=== PATIENT | female | born 1990 | race Caucasian/White ===

== ENCOUNTER 2018-08-27 22:18 | Emergency (ER) | payer MEDICAID, SELFPAY ==
[2018-08-27 22:23] VITALS: BP 121/72; PULSE 117; RESP 17; TEMP 37; O2SAT 100
[2018-08-27 22:44] VITALS: RESP 17
[2018-08-27] MEDS: LORazepam 0.5 MG TAB PO (23:10)
[2018-08-27 23:17] VITALS: BP 109/68; PULSE 99; RESP 16; O2SAT 97
--- NOTE | 2018-08-27 23:17 | W.ED.GENAD ---
Discharge Plan Disposition Patient Disposition: HOME Condition: Improving Discharge Details Chief Complaint: Anxiety Clinical Impression: Anxiety attack Primary Care Provider: None,None ED Provider: Liz Corona Home Meds and New Rx's Prescriptions: No Action No Known Home Meds RF: 0 Discharge Instructions Instructions: Anxiety (ED), Anxiolysis in Adults (ED) Additional Instructions: Encourage hydration. Try breathing techniques as discussed for anxiety. Please call primary care Thursday to schedule follow up appointment. If you develop new/worsening symptom s please seek care urgently once again. Stand Alone Forms: Work Release Referrals: Carrington Colon NP [NURSE PRACTITIONER] - Discharge Data Discharge Date/Time-TO BE ENTERED AT DEPARTURE: 08/27/18 23:38 Medical Decision Making Patient is a 28 year old female presenting today with c/c of anxiety. she reports she has had anxiety attacks historically, has been one year since her last. About to start a new job, increasing her stress. She Denies fever/chills, CHRISTY, visual changes, weakness, altered sensation. States that she laid down for bed tonight when this came on. States that it feels like her anxiety does typically. Feels that she is already improving. Patient does appear anxious on exam. She is tachycardic with a rate of 117. Patient is not on any estrogen supplements. Do not have suspicion for pulmonary embolism. Also considered ACS but finds highly unlikely. Patient is denying any chest pain. Is rather, feeling shaky, anxious and short of breath. States that she has been under increased stress since changing her job. Reports this feels very similar to her anxiety sections have the past. Will treat as such. She denies any thoughts of self-harm Patient received oral Ativan, is feeling much improved. Patient does not have local primary care, I have asked her lawn care professional to follow-up appointment. She denies discussed return precautions in depth. All of her questions and concerns were addressed and she is in agreement this plan. We did discuss home anxiolytic techniques which patient will begin using. She lives with her significant other who is able to continue to monitor her and bring her back should symptoms progress. HPI General Mode of arrival: ambulatory. Date/Time Provider Initiated Documentation: 08/27/18 22:24. Limitations to Documentation: no limitations. Information obtained by: patient, family and RN notes reviewed. History of Present Illness 28 year old F presents to the emergency department with the chief complaint of anxiety attack, described as severe and similar to prior episodes, Quality is described as other (feels shaky in extremities), Patient started experiencing this minute(s) and it has been constant. No relieving factors improve symptom(s), No exacerbating factors reported . Patient notes shortness of breath (has been hyperventilating); denies chest pain, cough, diaphoresis, fever/chills, headaches, loss of appetite, nausea/vomiting, rash, syncope and weakness. Patient did receive the following treatments prior to arrival, none Related Data Home Medications Medication Instructions Recorded Confirmed Unknown [No Known Home Meds] 08/27/18 08/27/18 Allergies Allergy/AdvReac Type Severity Reaction Status Date / Time tetracycline Allergy Severe Hives Unverified 08/27/18 22:27 General Stated Complaint: Anxiety ISIDRO: 3 Review of Systems Constitutional Reports as per HPI, Denies chills, Denies fatigue, Denies fever(s), Denies headache(s) and Denies weakness Eyes Denies change in vision ENT Denies headache(s) Cardiovascular Reports as per HPI, Denies chest pain, Denies lightheadedness, Denies dyspnea and Denies dyspnea on exertion Respiratory Reports as per HPI, Denies cough, Denies dyspnea and Denies dyspnea on exertion Gastrointestinal Reports as per HPI, Denies abdominal pain, Denies change in bowel habits, Denies nausea and Denies vomiting Musculoskeletal Denies abnormal gait Integumentary/Breasts Reports as per HPI and Denies rash Neurologic Denies abnormal movements, Denies abnormal speech, Denies abnormal gait, Denies headache(s), Denies paresthesias and Denies weakness Psychiatric Reports abnormal sleep pattern (difficulty sleeping recently), Reports anxiety, Denies depression, Denies hallucinations, Denies homicidal ideation and Denies suicidal ideation Endocrine Denies fatigue [facility] Social History Smoking/Tobacco Use Status: Current every day Tobacco Type: cigarettes Alcohol Intake: current Alcohol Intake frequency: a few times a month Drug use: Daily Substance use type: marijuana Do you feel safe at home: Yes Do you feel safe in your relationship?: Yes Exam Const General: cooperative, healthy appearing, comfortable, no acute distress, well developed, well groomed and anxious Nutritional Appearance: average body habitus and well nourished Orientation: alert and awake [facility] Head: normal to inspection, no palpable skull fracture and normocephalic Ears: hearing grossly normal bilaterally Mouth: oral mucosae normal Eyes General: appearance normal, both eyes and all related structures Resp Effort & Inspection: normal respiratory effort, able to speak in complete sentences and no respiratory distress Auscultation: clear to auscultation bilaterally, no rales, no rhonchi and no wheezes Cardio Rate: regular rate Rhythm: regular rhythm Heart Sounds: S1 normal and S2 normal GI Inspection: normal to inspection Palpation: soft and nontender Back/Spine/Pelvis Back: no CVA tenderness Skin General skin exam: no rashes or lesions noted Trauma: no lacerations or abrasions Neuro General: alert and awake Cognition: normal cognition Speech: speech normal Gait: normal gait Course Vital Signs Temperature 37.0 C 08/27/18 22:23 Pulse 117 H 08/27/18 22:23 Respiratory Rate 17 08/27/18 22:23 Blood Pressure 121/72 08/27/18 22:23 Pulse Oximetry 100 08/27/18 22:23 Temperature 37.0 C 08/27/18 22:23 Temperature Source Skin 08/27/18 22:23 Pulse 117 H 08/27/18 22:23 Respiratory Rate 17 08/27/18 22:44 Respiratory Effort Non-Labored 08/27/18 22:44 Respiratory Depth Normal 08/27/18 22:44 Respiratory Pattern Normal 08/27/18 22:44 Blood Pressure 121/72 08/27/18 22:23 Blood Pressure Position Sitting 08/27/18 22:23 Pulse Oximetry 100 08/27/18 22:23 Oxygen Delivery Method Room Air 08/27/18 22:23 Oxygen Flow Rate 0 08/27/18 22:23 Pain Level 0 08/27/18 22:23
[2018-08-27 23:37] VITALS: BP 117/72; PULSE 93; RESP 16; TEMP 37; O2SAT 99
--- NOTE | 2018-08-27 23:56 | ED.GENADUL_ITS ---
Discharge Plan Disposition Patient Disposition: HOME Condition: Improving Discharge Details Chief Complaint: Anxiety Clinical Impression: Anxiety attack Primary Care Provider: None,None ED Provider: Liz Corona Home Meds and New Rx's Prescriptions: No Action No Known Home Meds RF: 0 Discharge Instructions Instructions: Anxiety (ED), Anxiolysis in Adults (ED) Additional Instructions: Encourage hydration. Try breathing techniques as discussed for anxiety. Please call primary care Thursday to schedule follow up appointment. If you develop new/worsening symptom s please seek care urgently once again. Stand Alone Forms: Work Release Referrals: Carrington Colon NP [NURSE PRACTITIONER] - Discharge Data Discharge Date/Time-TO BE ENTERED AT DEPARTURE: 08/27/18 23:38 Medical Decision Making Patient is a 28 year old female presenting today with c/c of anxiety. she reports she has had anxiety attacks historically, has been one year since her last. About to start a new job, increasing her stress. She Denies fever/chills, CHRISTY, visual changes, weakness, altered sensation. States that she laid down for bed tonight when this came on. States that it feels like her anxiety does typically. Feels that she is already improving. Patient does appear anxious on exam. She is tachycardic with a rate of 117. Patient is not on any estrogen supplements. Do not have suspicion for pulmonary embolism. Also considered ACS but finds highly unlikely. Patient is denying any chest pain. Is rather, feeling shaky, anxious and short of breath. States that she has been under increased stress since changing her job. Reports this feels very similar to her anxiety sections have the past. Will treat as such. She denies any thoughts of self-harm Patient received oral Ativan, is feeling much improved. Patient does not have local primary care, I have asked her customer care representative to follow-up appointment. She denies discussed return precautions in depth. All of her questions and concerns were addressed and she is in agreement this plan. We did discuss home anxiolytic techniques which patient will begin using. She lives with her significant other who is able to continue to monitor her and bring her back should symptoms progress. HPI General Mode of arrival: ambulatory . Date/Time Provider Initiated Documentation: 08/27/18 22:24 . Limitations to Documentation: no limitations . Information obtained by: patient, family and RN notes reviewed . History of Present Illness 28 year old F presents to the emergency department with the chief complaint of anxiety attack, described as severe and similar to prior episodes, Quality is described as other (feels shaky in extremities), Patient started experiencing this minute(s) and it has been constant. No relieving factors improve symptom(s), No exacerbating factors reported . Patient notes shortness of breath (has been hyperventilating); denies chest pain, cough, diaphoresis, fever/chills, headaches, loss of appetite, nausea/vomiting, rash, syncope and weakness. Patient did receive the following treatments prior to arrival, none Related Data Home Medications Medication Instructions Recorded Confirmed Unknown [No Known Home Meds] 08/27/18 08/27/18 Allergies Allergy/AdvReac Type Severity Reaction Status Date / Time tetracycline Allergy Severe Hives Unverified 08/27/18 22:27 General Stated Complaint: Anxiety ISIDRO: 3 Review of Systems Constitutional Reports as per HPI, Denies chills, Denies fatigue, Denies fever(s), Denies headache(s) and Denies weakness Eyes Denies change in vision ENT Denies headache(s) Cardiovascular Reports as per HPI, Denies chest pain, Denies lightheadedness, Denies dyspnea and Denies dyspnea on exertion Respiratory Reports as per HPI, Denies cough, Denies dyspnea and Denies dyspnea on exertion Gastrointestinal Reports as per HPI, Denies abdominal pain, Denies change in bowel habits, Denies nausea and Denies vomiting Musculoskeletal Denies abnormal gait Integumentary/Breasts Reports as per HPI and Denies rash Neurologic Denies abnormal movements, Denies abnormal speech, Denies abnormal gait, Denies headache(s), Denies paresthesias and Denies weakness Psychiatric Reports abnormal sleep pattern (difficulty sleeping recently), Reports anxiety, Denies depression, Denies hallucinations, Denies homicidal ideation and Denies suicidal ideation Endocrine Denies fatigue [facility] Social History Smoking/Tobacco Use Status: Current every day Tobacco Type: cigarettes Alcohol Intake: current Alcohol Intake frequency: a few times a month Drug use: Daily Substance use type: marijuana Do you feel safe at home: Yes Do you feel safe in your relationship?: Yes Exam Const General: cooperative, healthy appearing, comfortable, no acute distress, well developed, well groomed and anxious Nutritional Appearance: average body habitus and well nourished Orientation: alert and awake [facility] Head: normal to inspection, no palpable skull fracture and normocephalic Ears: hearing grossly normal bilaterally Mouth: oral mucosae normal Eyes General: appearance normal, both eyes and all related structures Resp Effort & Inspection: normal respiratory effort, able to speak in complete sentences and no respiratory distress Auscultation: clear to auscultation bilaterally, no rales, no rhonchi and no wheezes Cardio Rate: regular rate Rhythm: regular rhythm Heart Sounds: S1 normal and S2 normal GI Inspection: normal to inspection Palpation: soft and nontender Back/Spine/Pelvis Back: no CVA tenderness Skin General skin exam: no rashes or lesions noted Trauma: no lacerations or abrasions Neuro General: alert and awake Cognition: normal cognition Speech: speech normal Gait: normal gait Course Vital Signs Temperature 37.0 C 08/27/18 22:23 Pulse 117 H 08/27/18 22:23 Respiratory Rate 17 08/27/18 22:23 Blood Pressure 121/72 08/27/18 22:23 Pulse Oximetry 100 08/27/18 22:23 Temperature 37.0 C 08/27/18 22:23 Temperature Source Skin 08/27/18 22:23 Pulse 117 H 08/27/18 22:23 Respiratory Rate 17 08/27/18 22:44 Respiratory Effort Non-Labored 08/27/18 22:44 Respiratory Depth Normal 08/27/18 22:44 Respiratory Pattern Normal 08/27/18 22:44 Blood Pressure 121/72 08/27/18 22:23 Blood Pressure Position Sitting 08/27/18 22:23 Pulse Oximetry 100 08/27/18 22:23 Oxygen Delivery Method Room Air 08/27/18 22:23 Oxygen Flow Rate 0 08/27/18 22:23 Pain Level 0 08/27/18 22:23
--- NOTE | 2018-08-31 08:56 | PDOC.ERCMPRO ---
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 Referral faxed to [facility] this am.
--- NOTE | 2018-08-31 08:57 | CMPROGNOTE_ITS ---
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 Referral faxed to [facility] this am.
== END 2018-08-27 23:38 | disposition home or self-care (01) ==
LOC: ER 23:49
PROVIDERS: Emergency Provider Physician Assistant
DX: F41.9 Anxiety disorder, unspecified (principal)
CPT/HCPCS: 99283

== ENCOUNTER 2018-10-13 12:08 | Outpatient (REF) | payer MEDICAID, SELFPAY ==
--- NOTE | 2018-10-13 11:25 | PAPFT_PTH ---
PATIENT: MICHELLE CHIU LOC: [facility] U#:[id number] AGE/SX: 28/F ROOM: RE10/13/[address]: Bernie Whitman NP : 1990 BED: DIS: 10/13/2018 SPEC #: [id number] RECD: 10/13/18 13:01 STATUS: KRISTOPHER JEFFERSON #: [id number] TANESHA: 10/13/18 11:[address]: Bernie Whitman NP DEPT: [facility] Cytology RECD BY: Carmel Fairbanks ENTERED: 10/13/18 13:01 SP TYPE: PAPFT SEVERIANO DR: None Tissues: 1 - CX/ENDOCX FOR PAP SMEARS Procedures: PAP THIN PREP/UVM Screening HPV DNA PROBE Comments: [id number] (CHLAMYDIA/GC)
[2018-10-14 14:32] LABS: Chlamydia Result Negative; GC Result Negative; Specimen Description SEE COMMENTS
== END 2018-10-13 12:28 ==
LOC: LBN 12:08
PROVIDERS: Visit Provider Nurse Practitioner Women's Health
DX: Z11.4 Encounter for screening for human immunodeficiency virus [HIV] (principal); Z11.51 Encounter for screening for human papillomavirus (HPV); Z11.3 Encounter for screening for infections with a predominantly sexual mode of transmission
CPT/HCPCS: 87491; 87591; 88142; 87624

== ENCOUNTER 2018-12-31 02:38 | Emergency (ER) | payer MEDICAID, SELFPAY ==
[2018-12-31 02:41] VITALS: BP 109/66; PULSE 88; RESP 24; TEMP 37.5; O2SAT 99
--- NOTE | 2018-12-31 02:45 | ED.GENADUL_ITS ---
Discharge Plan Disposition Patient Disposition: HOME Condition: Good Discharge Details Chief Complaint: Abd Prob Clinical Impression: Upper abdominal pain Primary Care Provider: Kitty Briscoe ED Provider: Claude Self Meds and New Rx's Prescriptions: New omeprazole 40 mg capsule,delayed release(DR/EC) 40 mg PO DAILY Qty: 30 RF: 0 sucralfate 1 gram tablet 1 gm PO QACHS Qty: 40 RF: 0 Continued lorazepam [Ativan] 0.5 mg Tablet 0.5 mg PO DIRECTED RF: 0 Discharge Instructions Instructions: Abdominal Pain (ED) Additional Instructions: Your laboratory studies tonight looked okay. Suspect pain is related to acid type disease in the stomach, possibly ulcer. We will start you on medication as we discussed. Try to cut back on caffeine and tobacco use. Follow-up with primary care. Return to ED for fever, worsening pain, vomiting especially blood, black or bloody stool. Referrals: Kitty Briscoe [Primary Care Provider] - Medical Decision Making Patient presenting with periumbilical upper abdominal pain that has been triggered by eating and bothering her on and off for the last week. Tonight it is worse and not resolving. She has normal vital signs. She has no right upper quadrant tenderness. She has mild left upper quadrant tenderness. She does not have a surgical abdomen. She reports some dark stool this morning. Suspicious for acid related stomach disease. Will place IV and check labs. Will give IV Pepcid, GI cocktail, oral Carafate. Patient does report feeling better after medications though still has some discomfort. Abdomen remains benign. Laboratory studies are unremarkable. There is no anemia. Liver function lipase are normal. White count is normal. Discussed cutting back on caffeine and tobacco use. She also reports a fair amount of stress with her grandmother dying and her mother having a heart attack. We will start her on a PPI and Carafate. Follow-up with primary care. Return to ED if worsening pain, vomiting, hematemesis, fever, other concerns or problems. Lab Data Lab results reviewed: Yes I reviewed the patient's lab results. HPI General Mode of arrival: ambulatory . Date/Time Provider Initiated Documentation: 12/31/18 02:43 . Limitations to Documentation: no limitations . Information obtained by: patient and RN notes reviewed . HPI Narrative: Patient presents to ED with abdominal pain. She has been having abdominal discomfort on and off for the past week. Eating seems to bring it on most often. Simethicone usually relieves it. Tonight she has had worsening pain. Simethicone, omeprazole, ibuprofen has not helped. She has had occasional nausea but no vomiting. She did notice dark stool this morning. Pain is periumbilical and upper. It is sharp in nature. She is a smoker and drinks a lot of caffeine but denies significant alcohol or nonsteroidal use. She has no back pain, chest pain. She has few urinary symptoms but it is unchanged and related to her interstitial cystitis. She is due for her menstrual period is due now. She is not having pelvic pain or cramping and feels that this is more abdominal in nature. Related Data Home Medications Medication Instructions Recorded Confirmed lorazepam [Ativan] 0.5 mg PO DIRECTED 12/31/18 12/31/18 omeprazole 40 mg PO DAILY #30 cap 12/31/18 sucralfate 1 gm PO QACHS #40 tab 12/31/18 Previous Rx's Medication Instructions Recorded omeprazole 40 mg PO DAILY #30 cap 12/31/18 sucralfate 1 gm PO QACHS #40 tab 12/31/18 Allergies Allergy/AdvReac Type Severity Reaction Status Date / Time tetracycline Allergy Severe Hives Unverified 12/31/18 02:45 General Stated Complaint: Abd Prob ISIDRO: 3 Review of Systems Review of Systems Narrative: As documented in HPI otherwise negative as below. Const: no fever, chills, weakness Resp: no cough, SOB, pleuritic pain CV: no CP, diaphoresis, edema, syncope GI: abdominal pain, nausea; occasional diarrhea; no vomiting Neuro: no headache, numbness, focal weakness, confusion PFSH Medical History Acne (Acute) Anxiety (Chronic) History of abnormal cervical Pap smear (Acute) Interstitial cystitis (Acute) Panic attack (Acute) Smoker (Acute) Surgical History H/O cystoscopy (Acute) H/O eye surgery (Acute) s/p dog bite as toddler Social History Smoking/Tobacco Use Status: Current every day Tobacco Type: cigarettes Alcohol Intake: current Alcohol Intake frequency: holidays/special occasions only Drug use: Occasionally Substance use type: marijuana Do you feel safe at home: Yes Do you feel safe in your relationship?: Yes Female Reproductive History Menstrual Age of Menarche: 14 control method: none History History 1 Para 0 Hx # Term Pregnancies Multiple births Hx # Pregnancies Ectopic pregnancies AB induced Hx Number of Living Children AB spontaneous Exam Narrative Exam Narrative: Vitals: Afebrile with normal vitals and saturations. Const: WDWN female in NAD. HEENT: NC/AT. Normal facial exam. Eyes: Normal conjunctiva and sclera. Neck: Supple. Trachea midline. Lungs: Normal respiratory effort. Lungs are clear. Cor: RRR without murmur/gallop. Good radial pulses. GI: Soft and non-distended. Mildly tender in the LUQ but no guarding or rebound. Neuro: A+O x 3. CN grossly in tact. Good strength and no focal deficit. Ext: No C/C/E. Skin: Warm and dry without rash. Course Vital Signs Vital signs: Vital Signs Temperature 99.5 F 12/31/18 02:41 Pulse 88 12/31/18 02:41 Respiratory Rate 24 12/31/18 02:41 Blood Pressure 109/66 12/31/18 02:41 Pulse Oximetry 99 12/31/18 02:41 Temperature 99.5 F 12/31/18 02:41 Temperature Source Skin 12/31/18 02:41 Pulse 88 12/31/18 02:41 Respiratory Rate 24 12/31/18 02:41 Blood Pressure 109/66 12/31/18 02:41 Blood Pressure Position Sitting 12/31/18 02:41 Pulse Oximetry 99 12/31/18 02:41 Oxygen Delivery Method Room Air 12/31/18 02:41 Oxygen Flow Rate 0 12/31/18 02:41 Pain Level 9 12/31/18 02:41
[2018-12-31] MEDS: Sucralfate 1 GM TAB PO (03:03)
[2018-12-31] MEDS: FAMOTIDINE 20 MG/50 ML BAG 100 MG IVPB (03:09)
[2018-12-31 03:27] LABS: Abs Immature Grans 0.03 k/cumm (0.0-0.09); Absolute Basophil Count 0.04 k/cumm (0.0-0.2); Absolute Eosinophil Count 0.17 k/cumm (0.0-0.7); Absolute Lymphocyte Count 1.72 k/cumm (1.2-3.4); Absolute Monocyte Count 0.92 k/cumm (0.11-0.7); Absolute Neutrophil Count 6.81 k/cumm (1.2-6.7); Basophils % 0.4; Eosinophils % 1.8; HCT 38.9 % (36.0-46.0); HGB 13.3 g/dL (12.0-15.5); Immature Grans % 0.3; Lymphocytes % 17.8; Mean Corp. HGB Concentration 34.2 g/dL (32.0-36.0); Mean Corpuscular Volume 99.5 fL (80-95); Mean Platelet Volume 10.1 fL (8.0-11.0); Monocytes % 9.5; Neutrophils % 70.2; Platelet Count 253 x1000/uL (130-400); RBC 3.91 m/cumm (4.00-5.20); RBC Distribution Width 11.2 % (11.7-14.6); White Blood Cell Count 9.69 k/cumm (4.4-10.8)
[2018-12-31 03:34] LABS: HCG Qual (Serum) Negative
[2018-12-31 03:40] LABS: ALT 13 U/L (14-59); AST 12 U/L (15-37); Albumin 4.1 g/dL (3.4-5.0); Alkaline Phosphatase 56 U/L (46-116); Anion Gap 11.9 mmol/L (3-11); BUN 14 mg/dL (7-18); Bilirubin, Total 0.4 mg/dL (0.2-1.0); CO2 23.1 mmol/L (21.0-32.0); CREATININE 0.84 mg/dL (0.55-1.02); Calcium 8.4 mg/dL (8.5-10.1); Chloride 106 mmol/L (98-107); Glucose 98 mg/dL (70-100); Lipase 100 U/L (73-393); Sodium 141 mmol/L (136-145); Total Protein 7.6 g/dL (6.4-8.2)
== END 2018-12-31 04:00 | disposition home or self-care (01) ==
PROVIDERS: Emergency Provider Emergency Medicine; PCP Nurse Practitioner Family
DX: R10.10 Upper abdominal pain, unspecified (principal)
CPT/HCPCS: 36415; 80053; 83690; 96365; 99284; 84703; 85025

== ENCOUNTER 2019-01-03 09:31 | Outpatient (REF) | payer MEDICAID, SELFPAY ==
[2019-01-04 14:56] LABS: Helicobacter pylori Ag, Feces Negative (NEGAT)
== END 2019-01-03 09:51 ==
LOC: NCHCN 09:31
PROVIDERS: PCP Nurse Practitioner Family; Visit Provider Nurse Practitioner Family
DX: R10.13 Epigastric pain (principal)
CPT/HCPCS: 87338

== ENCOUNTER 2019-03-14 15:58 | Outpatient (CLI) | payer MEDICAID, SELFPAY ==
[2019-03-14 17:13] LABS: Abs Immature Grans 0.03 k/cumm (0.0-0.09); Absolute Basophil Count 0.04 k/cumm (0.0-0.2); Absolute Eosinophil Count 0.14 k/cumm (0.0-0.7); Absolute Monocyte Count 1.19 k/cumm (0.11-0.7); Basophils % 0.3; HCT 36.6 % (36.0-46.0); HGB 12.7 g/dL (12.0-15.5); Immature Grans % 0.2; Lymphocytes % 20.6; Mean Corp. HGB Concentration 34.7 g/dL (32.0-36.0); Mean Corpuscular Hemoglobin 33.5 pg (27.0-33.0); Mean Corpuscular Volume 96.6 fL (80-95); Mean Platelet Volume 10.5 fL (8.0-11.0); Monocytes % 8.6; Neutrophils % 69.3; Platelet Count 270 x1000/uL (130-400); RBC 3.79 m/cumm (4.00-5.20); RBC Distribution Width 11.2 % (11.7-14.6); White Blood Cell Count 13.81 k/cumm (4.4-10.8)
[2019-03-14 17:21] LABS: Absolute Lymphocyte Count 2.84 k/cumm (1.2-3.4); Absolute Neutrophil Count 9.57 k/cumm (1.2-6.7)
[2019-03-16 10:27] LABS: Rubella IgG Ab (UVM) Positive (See Note)
[2019-03-16 10:43] LABS: Hepatitis C Ab w Rflx HCV PCR Negative (Negative)
[2019-03-16 10:58] LABS: Hepatitis B Surface Ag Negative (Negative)
[2019-03-16 11:00] LABS: HIV-1/2 Ag & Ab Screen Negative (Negative)
[2019-03-16 12:08] LABS: Varicella IgG Antibody Positive (See Note)
[2019-03-16 12:57] LABS: Syphilis Total Ab w/Reflex Nonreactive (Nonreactive)
== END 2019-03-14 16:18 ==
PROVIDERS: PCP Nurse Practitioner Family; Visit Provider Advanced Practice Midwife
DX: Z34.91 Encounter for supervision of normal pregnancy, unspecified, first trimester (principal); Z11.59 Encounter for screening for other viral diseases; Z11.4 Encounter for screening for human immunodeficiency virus [HIV]; Z01.84 Encounter for antibody response examination
CPT/HCPCS: 36415; 86787; 86803; 86850; 86900; 86901; 87340; 87389; 85025; 86762; 86780

== ENCOUNTER 2019-03-14 18:13 | Outpatient (REF) | payer MEDICAID, SELFPAY ==
[2019-03-14 19:27] LABS: *AMPHETAMINES SCREEN URINE Negative (Negative); *BARBITURATES SCREEN URINE Negative (Negative); *BENZODIAZEPINES SCREEN URINE Negative (Negative); Cannabinoids THC POSITIVE (Negative); Cocaine Screen,Urine Negative (Negative); METHADONE URINE SCREEN Negative (Negative); OPIATES URINE SCREEN Negative (Negative)
[2019-03-14 19:28] LABS: Tricyclic Antidepressants Negative (Negative)
[2019-03-16 14:14] LABS: Chlamydia Result Negative (Negative); GC Result Negative (Negative)
[2019-03-20 11:13] LABS: Buprenorphine Negative; Norbuprenorphine Negative
== END 2019-03-14 18:33 ==
LOC: LBN 18:13
PROVIDERS: PCP Nurse Practitioner Family; Visit Provider Advanced Practice Midwife
DX: Z34.91 Encounter for supervision of normal pregnancy, unspecified, first trimester (principal); Z11.3 Encounter for screening for infections with a predominantly sexual mode of transmission
CPT/HCPCS: 80307; 87491; 87591; 87086; 87480; 87510; 87660

== ENCOUNTER 2019-03-28 13:54 | Outpatient (CLI) | payer MEDICAID, SELFPAY ==
[2019-04-05 17:10] LABS: Result Summary NEGATIVE; Specimen WB Whole Blood
== END 2019-03-28 14:14 ==
PROVIDERS: PCP Nurse Practitioner Family; Visit Provider Obstetrics & Gynecology Gynecology
DX: Z34.91 Encounter for supervision of normal pregnancy, unspecified, first trimester (principal); Z36.89 Encounter for other specified antenatal screening
CPT/HCPCS: 36415; 81220

== ENCOUNTER 2019-04-19 00:37 | Outpatient (CLI) | payer MEDICAID, SELFPAY ==
--- NOTE | 2019-04-19 11:00 | DI.US_ITS ---
APPROVED REPORT EXAM: Comprehensive 2D, Doppler, and color-flow Echocardiogram Patient Location: Out-Patient [facility] [employer] Manager: Lucrecia Esposito RDCS (AE) Rhythm: NSR Indications: heart murmur, maternal, , z34.90 encoutnter for supervision of normal pregnanc y, unspecified, unspecified trimester. Conclusion Left Ventricle : The left ventricle is normal size. Left ventricular systolic function is normal. Th ere is normal left ventricular wall thickness. There is normal LV segmental wall motion. The left ve ntricular diastolic function is normal. LVEF is 55-59%. Right Ventricle : The right ventricle is normal size. The right ventricular systolic function appears normal. Atria : Left atrium is top normal in size. The right atrium size is normal. Aortic Valve : Aortic valve is trileaflet. No aortic regurgitation is present. There is no hemodynami dariel significant aortic valvular stenosis (mean gradient 9mmhg). Mitral Valve : Mitral valve leaflets are mildly thickened, but open well. Trivial mitral regurgitatio n. No evidence of mitral valve stenosis. Great Vessels : The aortic root is normal in size. The ascending aorta size is normal. The IVC is dil atedl in size, but appears to collapses >50% with inspiration. Estimated RVSP is 23-31 mmHg. There is no prior echocardiogram available for comparison. Wall motion Left Ventricle The left ventricle is normal size. Left ventricular systolic function is normal. There is normal left ventricular wall thickness. There is normal LV segmental wall motion. The left ventricular diastolic function is normal. LVEF is 55-59%. Right Ventricle The right ventricle is normal size. The right ventricular systolic function appears normal. Atria Left atrium is top normal in size. The right atrium size is normal. Aortic Valve Aortic valve is trileaflet. There is no hemodynamically significant aortic valvular stenosis (mean gr adient 9mmhg). No aortic regurgitation is present. Mitral Valve Mitral valve leaflets are mildly thickened, but open well. No evidence of mitral valve stenosis. Triv ial mitral regurgitation. Tricuspid Valve The tricuspid valve is not well visualized. Trace to mild tricuspid regurgitation. Pulmonic Valve Pulmonic valve is not well visualized. Great Vessels The aortic root is normal in size. The ascending aorta size is normal. The IVC is dilatedl in size, b ut appears to collapses >50% with inspiration. Estimated RVSP is 23-31 mmHg. Pericardium There is no pericardial effusion. 2D Dimensions IVSd 0.85 cm F: 0.6-1.0 LV EDV A2C 104.3 mL PWd 0.80 cm F: 0.6 - 1.0 LV EDV A4C 98.7 mL LVDd 4.90 cm F: 3.8 - 5.2 LA Volume Index Biplane 29.4 mL/m2 LVDs 3.10 cm F: 2.2 - 3.5 LA Area A4C 18.21 cm2 Aortic Root 2.20 cm F: 2.7 - 3.3 LA Area A2C 14.44 cm2 RA Area A4C 11.27 cm2 EF AP4 63.7 % LVOT 1.85 cm (M/F) 1.5-2.5 EF AP2 58.2 % Ascending Aorta 2.61 cm F: 2.3 - 3.1 EF BP 59.6 % LVEF (Teich) 66.5 % IVC 2.33 cm LVEF (Chaney's) 59.60 % F: 54 - 74 TAPSE 2.70 cm (M/F) <1.7 LV Volume 80.18 mL F: 46 - 106 LV Volume Index 46.61 mL/m2 F: 29 - 61 FS 36.80 % LV Diastology MV E' medial 0.159 (>0.07 m/s) E/A Ratio 2.8 LV E/e MED 6.95 (<14) PV S/D Ratio 0.81 MV E' lateral 0.181 (>0.1 m/s) A-A Duration 157.47 msec LV E/e LAT 6.10 (<14) TR Peak Velocity 2.41 m/s Pulm Vein s 0.62 m/s Pulm Vein d 0.77 m/s Pulm Vein a 0.43 m/s LA vol/ BSA A2C s A-L 23.3 mL/m2 LA vol/ BSA A4C s A-L 31.6 mL/m2 Aortic Valve LVOT Area 2.80 cm2 AoV Area Vmax 2.08 cm2 LVOT Vmax 1.54 m/s AoV Area/ BSA (Vmax) 1.21 cm2/m2 LVOT Mean Mark. 1.10 m/s AYAH Mean Mark. Index 1.20 cm2/m2 LVOT Peak Gr. 9.5 mmHg LVOT Mean Gr. 5.5 mmHg LVOT VTI 0.309 m AoV Vmax 2.08 (0.5-1.3 m/s) AoV Mean Mark. 1.49 m/s AoV Peak Grad 17.3 mmHg LVOT SV 86.63 mL AoV Mean Grad 9.7 (<5 mmHg) AoV VTI 0.408 (0.18-0.25 m) AoV Area VTI 2.12 (2.5-4.5 cm2) AoV Area/ BSA (VTI) 1.23 cm/m2 Mitral Valve MV E Max Mark. 1.11 (0.4-1.3 m/s) RVOT Peak Gr. 3.19 mmHg MV A Velocity 0.40 (0.4-1.3 m/s) RVOT Mean Gr. 1.55 mmHg E/A Ratio 2.60 MV Decel. Time 178 (160-240 msec) MV PHT 51 msec MVA PHT 4.25 cm2 PV Peak Velocity 1.30 (0.5-1.5 m/s) RVOT Peak Mark. 0.89 m/s RVOT VTI 0.200 m Tricuspid Valve TR P. Gradient 23.2 mmHg TV Regurg Vmax 2.41 m/s RAP Estimate 8.00 mmHg RVSP 31.3 mmHg
== END 2019-04-19 00:57 ==
PROVIDERS: PCP Nurse Practitioner Family; Visit Provider Advanced Practice Midwife
DX: O99.412 Diseases of the circulatory system complicating pregnancy, second trimester (principal); R01.1 Cardiac murmur, unspecified; O30.042 Twin pregnancy, dichorionic/diamniotic, second trimester
CPT/HCPCS: 93306

== ENCOUNTER 2019-04-25 13:52 | Outpatient (CLI) | payer MEDICAID, SELFPAY ==
[2019-04-27 16:52] LABS: AFP 73.1 ng/mL; Calculated age at EDD 29 years; GA used in risk estimate Scan estimate; INHIBIN 1380 pg/mL; IVF Pregnancy No; Initial or repeat testing Initial testing; Insulin dependent diabetes No; Maternal Weight 143 lbs; Number of Fetuses Twins; Prev Down(T21)/Trisomy Pregnan No; Prev Pregnancy w/NTD No; RECOMMENDED FOLLOW UP None.; Results Summary Normal risk; hCG, TOTAL 67.1 IU/mL; hCG, TOTAL MoM 1.17 MoM; uE3 1.68 ng/mL; uE3 MoM 1.55 MoM
== END 2019-04-25 14:12 ==
PROVIDERS: PCP Nurse Practitioner Family; Visit Provider Obstetrics & Gynecology Gynecology
DX: O30.041 Twin pregnancy, dichorionic/diamniotic, first trimester (principal)
CPT/HCPCS: 36415; 81511

== ENCOUNTER 2019-05-10 15:46 | Emergency (ER) | payer MEDICAID, SELFPAY ==
[2019-05-10 15:49] VITALS: BP 111/66; PULSE 94; RESP 22; TEMP 36.8; O2SAT 100
--- NOTE | 2019-05-10 16:01 | W.ED.GENAD ---
Discharge Plan Disposition Patient Disposition: HOME Condition: Good Discharge Details Chief Complaint: Nk/Back Pain Clinical Impression: Back pain affecting Primary Care Provider: Kitty Briscoe ED Provider: Liz Corona Home Meds and New Rx's Prescriptions: New cyclobenzaprine 10 mg tablet 10 mg PO TID PRN (Reason: muscle spasm) Qty: 10 RF: 0 Continued aspirin 81 mg tablet,delayed release (DR/EC) 81 mg PO DAILY Qty: 90 RF: 3 PrePlus 27 mg iron- 1 mg tablet 1 tab PO DAILY Qty: 30 RF: 8 Discharge Instructions Instructions: Muscle Spasm (ED), Back Pain (ED) Additional Instructions: Encourage water intake. You may continue with the Tylenol and Lidoderm patches to help with discomfort. You may use the Flexeril as prescribed. Please only use this as prescribed will not drive will take this medication as it can make you drowsy. Please follow-up with women's wellness, they are expecting your call tomorrow. If you develop fever/chills, increased pain, weakness, altered sensation or other new/worsening symptoms please seek care urgently once again. Referrals: Juan Jameson MD [ [facility] STAFF PHYSICIAN] - Discharge Data Discharge Date/Time-TO BE ENTERED AT DEPARTURE: 05/10/19 18:13 Medical Decision Making Patient is a pleasant 29-year-old female G1, P0 presenting today with chief complaint of back pain. She reports she is had back pain over the past several weeks. Reports chronic back pain with no attributed traumatic onset. However, she reports the pain has progressively worsening over the past several weeks. She has been seen by women's wellness for this and there was concern that this may be associated with her current state. She is advised to use lidocaine patches and Tylenol. She is the pain is maximal when she wakes in the morning and is fairly diffuse at that time. She reports that typically the pain is low and over the coccyx the can spread out. On exam, patient is nontoxic-appearing. She does appear uncomfortable. She is full range of motion, benign abdominal exam, no midline or paraspinal tenderness, no palpable spasm, no step-off deformity. Negative straight leg test. Consulted with Dr. Jameson. He advised obtaining a UA. Patient is not endorsing any urinary symptoms at this time and has no CVA tenderness but this would be good to rule out for infectious etiology. He also recommended that the patient may be started on Flexeril as her symptoms are most consistent with muscle spasm. Discussed this recommendation with the patient. She drove herself here, plan to send home with prescription for Flexeril, advised that she not drive will take this medication. She does appear more comfortable after the Tylenol and the Lidoderm patch then though these did not help her initially. He has advised that he or Dr. Renee could see the patient in the office tomorrow if needed. UA shows an elevated specific gravity, I did encourage hydration. No evidence of infection. I encouraged close follow-up with women's wellness. Encouraged water intake. She will continue with Tylenol and Lidoderm patches to help with discomfort we will augment this with the Flexeril to help with spasm. We discussed new/worsening symptoms that are prompt her to seek care urgently once again. All her questions and concerns were addressed and she is agreement this plan. HPI General Mode of arrival: ambulatory. Date/Time Provider Initiated Documentation: 05/10/19 15:57. Limitations to Documentation: no limitations. Information obtained by: patient. History of Present Illness 29 year old F presents to the emergency department with the chief complaint of back pain affecting , described as severe, with intensity rated at 8. Quality is described as aching, and is localized to the back (primarily tail bone but does encompase entire back). Patient reports radiation to back. Patient started experiencing this week(s) and it has been constant. Immobilization improves symptom(s), Movement worsens symptoms . Patient notes no other symptoms.. Patient did receive the following treatments prior to arrival, none Related Data Home Medications Medication Instructions Recorded Confirmed vitamin with calcium 1 tab PO DAILY #30 tab 02/03/19 05/10/19 no.72-iron 27 mg-folic acid 1 mg tablet aspirin 81 mg tablet,delayed 81 mg PO DAILY #90 tab 03/14/19 05/10/19 release cyclobenzaprine 10 mg PO TID PRN #10 tab 05/10/19 Previous Rx's Medication Instructions Recorded vitamin with calcium 1 tab PO DAILY #30 tab 02/03/19 no.72-iron 27 mg-folic acid 1 mg tablet aspirin 81 mg tablet,delayed 81 mg PO DAILY #90 tab 03/14/19 release cyclobenzaprine 10 mg PO TID PRN #10 tab 05/10/19 Allergies Allergy/AdvReac Type Severity Reaction Status Date / Time tetracycline Allergy Severe Hives Verified 05/10/19 15:53 General Stated Complaint: Nk/Back Pain ISIDRO: 3 Review of Systems Constitutional Constitutional: Reports as per HPI, Denies chills, Denies fatigue, Denies fever(s), Denies frequent falls and Denies headache(s) Eyes Eyes: Denies change in vision ENT Ears, Nose, Mouth, and Throat: Denies headache(s) Cardiovascular Cardiovascular: Denies chest pain, Denies dyspnea and Denies dyspnea on exertion Respiratory Respiratory: Denies cough, Denies dyspnea and Denies dyspnea on exertion Gastrointestinal Gastrointestinal: Denies abdominal pain, Denies change in bowel habits and Denies fecal incontinence Genitourinary Genitourinary: Reports as per HPI, Denies urinary incontinence and Denies urinary hesitancy Musculoskeletal Musculoskeletal: Reports as per HPI, Reports back pain, Denies muscle weakness, Denies numbness, Denies radiating pain into limb, Reports stiffness and Denies tingling Integumentary/Breasts Skin/Breast: Reports as per HPI and Denies rash Neurologic Neurologic: Reports as per HPI, Denies frequent falls, Denies headache(s), Denies focal weakness, Denies numbness, Denies radicular pain, Denies sensory deficit, Denies tingling and Denies paresthesias Endocrine Endocrine: Denies fatigue [facility] Medical History Acne (Acute) Anxiety (Chronic) ED visit 07/2018 for panic attack, lorazepam 0.5 mg 1-2 x weekly. Lamictal prescribed by [facility] at [facility] for anxiety. Heart murmur (Acute) 03/2019: nl LEVF, Nl wall motion. Trace Mitral and tricuspid valve regurgitation. No need for additional testingl. High risk HPV infection (Acute) History of abnormal cervical Pap smear (Acute) Interstitial cystitis (Acute) Marijuana smoker (Acute) Panic attack (Acute) (Acute) Smoker (Acute) Surgical History H/O cystoscopy (Acute) H/O eye surgery (Acute) s/p dog bite as toddler Social History Smoking/Tobacco Use Status: Current every day Tobacco Type: cigarettes Quit status: quit date established Alcohol Intake: current Alcohol Intake frequency: holidays/special occasions only Drug use: Occasionally Substance use type: marijuana Do you feel safe at home: Yes Do you feel safe in your relationship?: Yes Female Reproductive History Menstrual Age of Menarche: 14 control method: none History History 2 Para 0 Hx # Term Pregnancies 0 Multiple births 0 Hx # Pregnancies 0 Ectopic pregnancies 0 AB induced 0 Hx Number of Living Children 0 AB spontaneous 1 Past Pregnancies Del. Date GA/Weeks # Outcome Route Wgt Sex Labor Lgth Anesthesia Location Prov Complic 02/01/12 Unsuccessful Delivery Date: 02/01/12 On 02/03/19 @ 14:27 Dorothy Mcnamara TAB Exam Const General: cooperative, healthy appearing, comfortable, no acute distress, well developed and well groomed Nutritional Appearance: average body habitus and well nourished Orientation: alert and awake Eyes General: appearance normal, both eyes and all related structures Neck Neck: normal visual inspection, full ROM, no lymphadenopathy and no meningeal signs Resp Effort & Inspection: normal respiratory effort and able to speak in complete sentences Auscultation: clear to auscultation bilaterally, no rales, no rhonchi and no wheezes Cardio Rate: regular rate Rhythm: regular rhythm Heart Sounds: S1 normal and S2 normal GI Inspection: normal to inspection (Normal for gestational age and multiparity) Palpation: soft, not firm, no guarding, not rigid and nontender Back/Spine/Pelvis Back: no CVA tenderness Cervical Spine: normal cervical lordosis, cervical ROM normal, No pain with cervical ROM, No cervical spasm, No cervical spinal tenderness and No step off deformity Thoracic/Lumbar Spine: thoracic and lumbar spine normal to inspection, No surgical scar(s) present, thoraco-lumbar ROM normal, straight leg raise negative bilaterally, No bend over test abnormal, No pain with thoraco-lumbar ROM, No paraspinal tenderness, No thoraco-lumbar ROM limited (Patient feels improved with forward flexion), No scoliosis, No thoraco-lumbar spasm, No thoracic spinal tenderness, No lumbar spinal tenderness and No straight leg raise positive Pelvis: no pain with anterior-posterior compression and no pain with lateral compression Sacroiliac joints: bilaterally nontender Sacrum: no ecchymosis, no erythema, no swelling and no tenderness Coccyx: no swelling and no tenderness Skin General skin exam: no rashes or lesions noted Neuro General: alert and awake Cognition: normal cognition Speech: speech normal Gait: normal gait Motor: muscle tone normal throughout, strength 5/5 throughout, no movement abnormalities noted and no fasciculations Sensory Exam: no sensory deficits noted (no saddle paresthesias) DTR's: Rt Patellar: 2+, Lt Patellar: 2+, Rt Ankle: 2+ and Lt Ankle: 2+ Extrem General: normal to inspection, full ROM, normal capillary refill, no joint enlargement, no pedal edema, no calf tenderness and normal gait Psych Appearance: grossly normal and well kempt Mental Status: mental status grossly normal Speech and Movement: speech and movement normal Course Vital Signs Vital signs: Vital Signs Temperature 36.8 C 05/10/19 15:49 Pulse 94 H 05/10/19 15:49 Respiratory Rate 22 05/10/19 15:49 Blood Pressure 111/66 05/10/19 15:49 Pulse Oximetry 100 05/10/19 15:49 Temperature 36.8 C 05/10/19 15:49 Temperature Source Skin 05/10/19 15:49 Pulse 94 H 05/10/19 15:49 Respiratory Rate 22 05/10/19 15:49 Respiratory Effort Non-Labored 05/10/19 15:58 Blood Pressure 111/66 05/10/19 15:49 Blood Pressure Position Sitting 05/10/19 15:49 Pulse Oximetry 100 05/10/19 15:49 Oxygen Delivery Method Room Air 05/10/19 15:49 Oxygen Flow Rate 0 05/10/19 15:49 Pain Level 8 05/10/19 15:49
[2019-05-10] MEDS: Acetaminophen 500 MG TAB 1000 MG PO (16:28)
[2019-05-10 17:07] LABS: Bilirubin Negative (Negative); Blood Negative (Negative); Clarity Clear (Clear); Glucose Negative (Negative); Ketones Negative (Negative); Leukocyte Esterase Negative (Negative); Nitrite Negative (Negative); Specific Gravity >= 1.030 (1.005-1.025); Urobilinogen 0.2 EU/dL (Up TO 0.2); pH 5.5 (5-8)
[2019-05-10 18:10] VITALS: BP 104/60; PULSE 72; RESP 16; O2SAT 100
== END 2019-05-10 18:13 | disposition home or self-care (01) ==
PROVIDERS: Emergency Provider Physician Assistant; PCP Nurse Practitioner Family
DX: O26.892 Other specified pregnancy related conditions, second trimester (principal); Z3A.16 16 weeks gestation of pregnancy; O99.332 Smoking (tobacco) complicating pregnancy, second trimester; F17.210 Nicotine dependence, cigarettes, uncomplicated
CPT/HCPCS: 99283; 81003

== ENCOUNTER 2019-05-24 01:37 | Outpatient (CLI) | payer MEDICAID, SELFPAY ==
--- NOTE | 2019-05-24 08:00 | DI.US_ITS ---
EXAM: US OB 2-3 TRIMESTER TWINS CLINICAL HISTORY: morphology,030.009,twins TECHNIQUE: Ultrasound performed using standard protocol. COMPARISON: US ECHOCARDIOGRAM from 04/19/2019 FINDINGS: Ob ultrasound was performed utilizing 2nd trimester protocol. There is twin gestation. biomet ry for Baby A is consistent with 19 week 6 day gestation with EDC 10/12/2019. biometry for Bab y B is 19 weeks 6 days as well. There is a normal quantity of amniotic fluid Placenta is anterior with no evidence of placenta previa. No specific anomaly identified, plea se see attached data sheet. cardiac activity observed at a rate of 157 BPM for baby A and 158 BPM for baby B. DATA REPOSITORY:
== END 2019-05-24 01:57 ==
PROVIDERS: PCP Nurse Practitioner Family; Visit Provider Obstetrics & Gynecology Gynecology
DX: O30.042 Twin pregnancy, dichorionic/diamniotic, second trimester (principal); Z3A.19 19 weeks gestation of pregnancy
CPT/HCPCS: 76805; 76810

== ENCOUNTER 2019-06-03 03:24 | Outpatient (CLI) | payer MEDICAID, SELFPAY ==
--- NOTE | 2019-06-03 08:43 | DI.MRI_ITS ---
EXAM: MR LUMBAR SPINE WO CLINICAL HISTORY: Long history of back pain predating ,O99.89,M54.9. TECHNIQUE: Multiplanar multisequence MRI was performed. COMPARISON: No exams were available for comparison FINDINGS: Marrow signal is normal. The conus medullaris appears normal. The intervertebral discs are intact. There is no central canal stenosis or neural foraminal narrowing. There are no significant facet barbara int degenerative changes, spondylolysis or spondylolisthesis. The kidneys are partially included on the axial images. There is no evidence of hydronephrosis or perinephric collections. No paraspinal masses are seen. The aorta is normal in diameter. IMPRESSION: Negative MRI of the lumbar spine. DATA REPOSITORY:
== END 2019-06-03 03:44 ==
PROVIDERS: PCP Nurse Practitioner Family; Visit Provider Obstetrics & Gynecology
DX: O99.89 Other specified diseases and conditions complicating pregnancy, childbirth and the puerperium (principal); M54.9 Dorsalgia, unspecified
CPT/HCPCS: 72148

== ENCOUNTER 2019-06-21 01:56 | Outpatient (CLI) | payer MEDICAID, SELFPAY ==
--- NOTE | 2019-06-21 08:07 | DI.US_ITS ---
EXAM: US OB CAITLYN WEIGHT CLINICAL HISTORY: Evaluate growth of twins TECHNIQUE: Ultrasound performed using standard protocol. COMPARISON: US OB 2-3 TRIMESTER TWINS from 05/24/2019 FINDINGS: Ob ultrasound was performed utilizing 2nd trimester protocol. There is a twin gestation. Fetus A sh ows biometry consistent with gestational age of 23 weeks 4 days and an EDC of 10/14/19. The est imated weight is 605 grams. Heart rate 162 BPM. Fetus B shows biometry consistent with 23 weeks 5 days and EDC of 10/13/2019. Estimated weight 609 grams. Heart rate 149 BPM. Placenta is anterior with no evidence of placenta previa. There is a normal quantity of amniotic flu id and the CAITLYN is 15. DATA REPOSITORY:
== END 2019-06-21 02:16 ==
PROVIDERS: PCP Nurse Practitioner Family; Visit Provider Obstetrics & Gynecology Gynecology
DX: O30.042 Twin pregnancy, dichorionic/diamniotic, second trimester (principal); Z3A.23 23 weeks gestation of pregnancy
CPT/HCPCS: 76816

== ENCOUNTER 2019-07-22 03:29 | Outpatient (CLI) | payer MEDICAID, SELFPAY ==
--- NOTE | 2019-07-22 06:30 | DI.US_ITS ---
EXAM: US OB CAITLYN WEIGHT CLINICAL HISTORY: MONITOR GROWTH OF TWINS. COMPARISON: US OB CAITLYN WEIGHT from 06/21/2019 TECHNIQUE: Transabdominal obstetrical ultrasound performed. FINDINGS: Sonographic images demonstrate a twin intrauterine gestation. Baby A is located at the maternal left in the cephalic position. Baby B is on the maternal right in transverse position with the head toward the left. Fetus A: Sonographically assessed gestational age 27 weeks 5 days Estimated date of delivery based on this ultrasound is: 17 December 2019 heart rate motion is Dopplered at: 155 bpm. stomach and bladder appear normal. Amniotic fluid index: 22.6 cm. Amount of fluid is within normal limits. EFW: 1112 grams corresponding to the 26th percentile. Fetus B: Sonographically assessed gestational age 27 weeks 4 days Estimated date of delivery based on this ultrasound is: 18 December 2019 heart rate motion is Dopplered at: 143 bpm. stomach and bladder appear normal. EFW: 1099 grams corresponding to the 23rd percentile Amniotic fluid index: 22.6 cm. Amount of fluid is within normal limits. IMPRESSION: Twin gestation with appropriate interval growth the previous exam.. DATA REPOSITORY:
[2019-07-22 10:11] LABS: Abs Immature Grans 0.46 k/cumm (0.0-0.09); Basophils % 0.2; Eosinophils % 0.6; HCT 34.2 % (36.0-46.0); HGB 11.3 g/dL (12.0-15.5); Lymphocytes % 9.4; Mean Corpuscular Hemoglobin 33.9 pg (27.0-33.0); Mean Corpuscular Volume 102.7 fL (80-95); Monocytes % 7.9; Neutrophils % 79.9; Platelet Count 315 x1000/uL (130-400); RBC 3.33 m/cumm (4.00-5.20); RBC Distribution Width 12.5 % (11.7-14.6); White Blood Cell Count 23.44 k/cumm (4.4-10.8)
[2019-07-22 10:18] LABS: Absolute Basophil Count 0.05 k/cumm (0.0-0.2); Absolute Eosinophil Count 0.14 k/cumm (0.0-0.7); Absolute Monocyte Count 1.85 k/cumm (0.11-0.7); Absolute Neutrophil Count 18.73 k/cumm (1.2-6.7)
[2019-07-22 10:22] LABS: Glucose,1 Hr (Glucola) 103 mg/dL (80-140)
[2019-07-22 10:24] LABS: Diff Comment Diff Reviewed; Macrocytosis 1+
== END 2019-07-22 03:49 ==
PROVIDERS: Obstetrics & Gynecology; PCP Nurse Practitioner Family; Visit Provider Obstetrics & Gynecology Gynecology
DX: O30.042 Twin pregnancy, dichorionic/diamniotic, second trimester (principal); Z3A.27 27 weeks gestation of pregnancy
CPT/HCPCS: 76816; 82950; 85025

== ENCOUNTER 2019-08-12 03:47 | Outpatient (CLI) | payer MEDICAID, SELFPAY ==
--- NOTE | 2019-08-12 06:45 | DI.US_ITS ---
EXAM: US OB CAITLYN WEIGHT CLINICAL HISTORY: TWINS,O30.009 TECHNIQUE: Ultrasound performed using standard protocol. COMPARISON: US US OB CAITLYN WEIGHT from 07/22/2019 US US OB CAITLYN WEIGHT from 08/12/2019 FINDINGS: Third trimester ultrasound was performed for twin gestation. There is visually a normal quantity of amniotic fluid and the CAITLYN is 23. The placenta is anterior with no evidence of placenta previa. Bot h twins are in cephalic presentation. Twin A is maternal right-sided and shows biometry consistent with gestational age 30 weeks 5 da ys and EDC of 10/16/2019. The estimated weight is 1610 grams which is at the 26th percentile f or predicted gestational age. heart rate was 157 BPM. Twin B is maternal left-sided and shows biometry consistent with gestational age 30 weeks 4 day s and EDC of 10/17/2019. The estimated weight is 1610 grams which is at the 26th percentile fo r predicted gestational age. DATA REPOSITORY:
== END 2019-08-12 04:07 ==
PROVIDERS: PCP Nurse Practitioner Family; Visit Provider Obstetrics & Gynecology
DX: O30.043 Twin pregnancy, dichorionic/diamniotic, third trimester (principal); Z3A.30 30 weeks gestation of pregnancy
CPT/HCPCS: 76816

== ENCOUNTER 2019-09-05 02:02 | Outpatient (CLI) | payer MEDICAID, SELFPAY ==
--- NOTE | 2019-09-05 | DI.US_ITS ---
EXAM: US OB CAITLYN WEIGHT CLINICAL HISTORY: TWIN IUP, o30.009. COMPARISON: US US OB CAITLYN WEIGHT from 08/12/2019 US US OB CAITLYN WEIGHT from 09/05/2019 TECHNIQUE: Transabdominal Transvaginal first trimester obstetrical ultrasound performed. FINDINGS: There is a twin gestation. Baby A is in the cephalic presentation. heart rate is 130 beats per minute. The estimated ges tational age is 34 weeks 4 days. The estimated weight is 2407 grams. This is the 42nd percent ile. Baby B is in the cephalic presentation. heart rate is 145 beats per minute. The estimated ges tational age is 34 weeks. The estimated weight is 2298 grams. This is the 29th percentile. The placenta is anterior. Visually the amniotic fluid appears within normal limits. The amniotic fl uid index is 15.4 cm. IMPRESSION: Live twin intrauterine gestation as above. DATA REPOSITORY:
== END 2019-09-05 02:22 ==
PROVIDERS: PCP Nurse Practitioner Family; Visit Provider Obstetrics & Gynecology
DX: O30.043 Twin pregnancy, dichorionic/diamniotic, third trimester (principal); Z3A.34 34 weeks gestation of pregnancy
CPT/HCPCS: 76816

== ENCOUNTER 2019-09-08 13:09 | Outpatient (CLI) | payer MEDICAID, SELFPAY | END 2019-09-08 13:29 | PROVIDERS: PCP Nurse Practitioner Family; Visit Provider Obstetrics & Gynecology | DX: O30.043 Twin pregnancy, dichorionic/diamniotic, third trimester (principal) | CPT/HCPCS: 59025 ==

== ENCOUNTER 2019-09-15 09:34 | Outpatient (CLI) | payer MEDICAID, SELFPAY | END 2019-09-15 09:54 | PROVIDERS: PCP Nurse Practitioner Family; Visit Provider Obstetrics & Gynecology | DX: O30.043 Twin pregnancy, dichorionic/diamniotic, third trimester (principal); Z3A.35 35 weeks gestation of pregnancy | CPT/HCPCS: 59025 ==

== ENCOUNTER 2019-09-15 10:21 | Outpatient (REF) | payer MEDICAID, SELFPAY ==
[2019-09-15 12:56] LABS: *AMPHETAMINES SCREEN URINE Negative (Negative); *BARBITURATES SCREEN URINE Negative (Negative); *BENZODIAZEPINES SCREEN URINE Negative (Negative); Cannabinoids THC POSITIVE (Negative); Cocaine Screen,Urine Negative (Negative); METHADONE URINE SCREEN Negative (Negative); OPIATES URINE SCREEN Negative (Negative)
[2019-09-15 12:57] LABS: Tricyclic Antidepressants Negative (Negative)
[2019-09-21 12:29] LABS: Buprenorphine Negative; Norbuprenorphine Negative
== END 2019-09-15 10:41 ==
LOC: LBN 10:21
PROVIDERS: PCP Nurse Practitioner Family; Visit Provider Obstetrics & Gynecology
DX: Z34.93 Encounter for supervision of normal pregnancy, unspecified, third trimester (principal); Z36.85 Encounter for antenatal screening for Streptococcus B
CPT/HCPCS: 80307; 87081

== ENCOUNTER 2019-09-19 09:00 | Outpatient (CLI) | payer MEDICAID, SELFPAY | END 2019-09-19 09:20 | PROVIDERS: PCP Nurse Practitioner Family; Visit Provider Obstetrics & Gynecology | DX: O30.043 Twin pregnancy, dichorionic/diamniotic, third trimester (principal) | CPT/HCPCS: 59025 ==

== ENCOUNTER 2019-09-22 09:15 | Outpatient (CLI) | payer MEDICAID, SELFPAY | END 2019-09-22 09:35 | PROVIDERS: PCP Nurse Practitioner Family; Visit Provider Obstetrics & Gynecology Gynecology | DX: O30.043 Twin pregnancy, dichorionic/diamniotic, third trimester (principal) | CPT/HCPCS: 59025 ==

== ENCOUNTER 2019-09-26 07:36 | Outpatient (CLI) | payer MEDICAID, SELFPAY ==
[2019-09-26 20:59] LABS: COVID-19 RT-PCR UVMMC Result Negative (Negative)
== END 2019-09-26 07:56 ==
PROVIDERS: PCP Nurse Practitioner Family; Visit Provider Obstetrics & Gynecology
DX: O30.043 Twin pregnancy, dichorionic/diamniotic, third trimester (principal); Z11.59 Encounter for screening for other viral diseases
CPT/HCPCS: U0003

== ENCOUNTER 2019-09-26 10:10 | Outpatient (CLI) | payer MEDICAID, SELFPAY | END 2019-09-26 10:30 | PROVIDERS: PCP Nurse Practitioner Family; Visit Provider Obstetrics & Gynecology | DX: O30.043 Twin pregnancy, dichorionic/diamniotic, third trimester (principal) | CPT/HCPCS: 59025 ==

== ENCOUNTER 2019-09-28 08:44 | Inpatient (IN) | payer MEDICAID, SELFPAY ==
[2019-09-28 09:44] LABS: HCT 38.3 % (36.0-46.0); HGB 13.1 g/dL (12.0-15.5); Mean Corp. HGB Concentration 34.2 g/dL (32.0-36.0); Mean Corpuscular Hemoglobin 34.7 pg (27.0-33.0); Mean Corpuscular Volume 101.6 fL (80-95); Mean Platelet Volume 10.3 fL (8.0-11.0); Platelet Count 250 x1000/uL (130-400); RBC 3.77 m/cumm (4.00-5.20); RBC Distribution Width 12.7 % (11.7-14.6); White Blood Cell Count 13.29 k/cumm (4.4-10.8)
[2019-09-28] MEDS: Lactated Ringers 1,000 ML 125 ML IV (09:50)
[2019-09-28] MEDS: Oxytocin/Normal Saline 30 UNITS/500 ML BAG IV (09:51)
--- NOTE | 2019-09-28 10:32 | HPE_ITS ---
Date of service: 09/28/19 Time of Service: 10:32 Assessment and Plan Assessment and plan (1) Twin : Status: Acute Qualifiers: Multiple gestation type: dichorionic and diamniotic Trimester: third trimester Qualified Code(s): O30.043 - Twin , dichorionic/diamniotic, third trimester (2) Smoker: Status: Acute Assessment and plan: Will provide nicotine patch while hospitalized. History of Present Illness History of Present Illness Chief Complaint: IOL for Rivera twin gestation @ 37w3d EGA Narrative: Pt is a 29yo female who presents for induction of labor of a di-di-twin gestation at 37 weeks 3 days EGA. Patient's FLORIDALMA is 10/14/2019 by a sure LMP confirmed by first trimester OB ultrasound. course: Patient presented for care in her first trimester she is had a total of 15 visits. Her stress of blood pressure is 110/70 there trimester blood pressure 115/70 total weight gain 41 pounds. Size has been equal to dates she had a normal second trimester morphology ultrasound and she had serial growth ultrasounds. Most recent ultrasound on 09/05/2019 showed twin A approximately 5 pounds 5 ounces 42nd percentile twin B 5 pounds 1 ounces in the 29th percentile both vertex vertex. CAITLYN in both gestational sacs 15.4. She has an anterior placenta. She is group B strep negative. B+ antibody negative. Negative serology testing, rubella immune. Normal quad screen. Patient is a tobacco and marijuana user. She smokes approximately 10 cigarettes a day and has continued to use marijuana during her . Review of Systems All systems reviewed & are unremarkable except as noted in HPI and below Constitutional Constitutional: Reports headache(s) (Occasional) ENT Ears, Nose, Mouth, and Throat: Reports headache(s) (Occasional) Cardiovascular Cardiovascular: Reports system reviewed and no additional complaints, except as documented and Reports leg edema (Bilateral) Respiratory Respiratory: Reports system reviewed and no additional complaints, except as documented Gastrointestinal Gastrointestinal: Reports system reviewed and no additional complaints, except as documented Genitourinary Genitourinary: Reports system reviewed and no additional complaints, except as documented Integumentary/Breasts Skin/Breast: Reports system reviewed and no additional complaints, except as documented Neurologic Neurologic: Reports headache(s) (Occasional) Psychiatric Psychiatric: Reports anxiety (Concerned about receiving epidural.) PFS Social History (Updated 09/28/19 @ 10:40 by Perla Renee MD) Smoking/Tobacco Use Status: Current every day Tobacco Type: cigarettes Quit status: quit date established Alcohol Intake: current Alcohol Intake frequency: holidays/special occasions only Drug use: Occasionally Substance use type: marijuana Household members: significant other and other Details: BF Deshawn Baron Number of Children: 0 current occupation: Employed Do you feel safe at home: Yes Do you feel safe in your relationship?: Yes Female Reproductive History Menstrual Age of Menarche: 14 control method: none History History 2 Para 0 Hx # Term Pregnancies 0 Multiple births 0 Hx # Pregnancies 0 Ectopic pregnancies 0 AB induced 0 Hx Number of Living Children 0 AB spontaneous 1 Past Pregnancies Del. Date GA/Weeks # Outcome Route Wgt Sex Labor Lgth Anesthes ia Location [facility] 02/01/12 Unsuccessful Delivery Date: 02/01/12 TAB Dorothy Mcnamara Home Medications and Allergies Home Medications Medication Instructions Recorded Confirmed Type vitamin with calcium 1 tab PO DAILY #30 tab 02/03/19 09/28/19 Rx no.72-iron 27 mg-folic acid 1 mg tablet aspirin 81 mg tablet,delayed 81 mg PO DAILY #90 tab 03/14/19 09/28/19 Rx release omeprazole 20 mg capsule,delayed 20 mg PO DAILY PRN cap 07/22/19 09/28/19 History release cyclobenzaprine 10 mg tablet 10 mg PO TID PRN #30 tab 07/26/19 09/28/19 Rx mecobalamin (vitamin B12) 1,000 1,000 mcg SL DAILY #90 tab 07/28/19 09/28/19 Rx mcg disintegrating tablet,sublingual Allergies Allergy/AdvReac Type Severity Reaction Status Date / Time tetracycline Allergy Severe Hives Verified 09/15/19 08:52 Exam Const General: no acute distress Nutritional Appearance: average body habitus Orientation: alert, awake and oriented x3 Resp Effort & Inspection: normal respiratory effort Auscultation: clear to auscultation bilaterally Cardio Rate: regular rate Rhythm: regular rhythm Manual OB Exam: dilated 3, effaced fully (90) and station '+1 Other: Occasional contractions on external tocometer. Pitocin infusion running at 4 milliunits/min. Back/Spine/Pelvis Back: no CVA tenderness Skin General skin exam: no rashes or lesions noted (Multiple tattoos on thighs and trunk) Extrem General: normal to inspection, full ROM, capillary refill normal and normal exam except as noted (1+ nonpitting lower extremity edema. 2+ DTRs no clonus) Psych Appearance: grossly normal Mental Status: mental status grossly normal Speech and Movement: speech and movement normal Mood: anxious mood Affect: normal affect Results Labs Result diagrams: 09/28/19 09:28 Labs: Laboratory Results - last 24 hr 09/27/19 09/27/19 09/28/19 14:35 14:36 09:28 WBC Cancelled RBC Cancelled Hgb Cancelled Hct Cancelled MCV Cancelled MCH Cancelled MCHC Cancelled RDW Cancelled Plt Count Cancelled MPV Cancelled Patient ABO/Rh Cancelled B Positive Antibody Screen Negative 09/28/19 09:28 WBC 13.29 H RBC 3.77 L Hgb 13.1 Hct 38.3 MCV 101.6 H MCH 34.7 H MCHC 34.2 RDW 12.7 Plt Count 250 MPV 10.3 Patient ABO/Rh Antibody Screen COVID-19 Screening In the past 14 days, have you traveled outside of [place]?: NO
[2019-09-28] MEDS: Nicotine 21 MG/24 HR PATCH TD (15:26)
[2019-09-28] MEDS: Omeprazole 20 MG CAPCR PO (21:11)
[2019-09-28] MEDS: Acetaminophen 325 MG TAB 650 MG PO (21:43)
[2019-09-28] MEDS: Ibuprofen 600 MG TAB PO (21:46)
[2019-09-28] MEDS: Hamamelis Leaf/Glycerin 100 EACH BOX PR (22:22)
[2019-09-29] MEDS: Acetaminophen 325 MG TAB 650 MG PO ×3 (04:13→21:32)
[2019-09-29] MEDS: Ibuprofen 600 MG TAB PO ×3 (04:14→21:32)
[2019-09-29] MEDS: Docusate Sodium 100 MG CAP PO (04:14)
--- NOTE | 2019-09-29 10:27 | W.PM.OP ---
Date of service: 09/29/19 Time of Service: 10:27 Operative Note Operative Note DATE OF PROCEDURE: 09/28/19 PRE-OP DIAGNOSIS: Amniotic dichorionic twin gestation at 37.5 weeks EGA. Induction of labor POST-OP DIAGNOSIS: same PROCEDURE: Vacuum-assisted vaginal delivery of twin B SURGEON: Perla Renee SPEECH ASSISTANT: Li Bucio ANESTHESIA: epidural ESTIMATED BLOOD LOSS: 350 PATHOLOGY: none sent COMPLICATIONS: None Patient was transported to: floor Patient's condition: stable Indications: 29-year-old G2, P0 female who underwent a induction of labor at term for Di-/Di twin gestation. Spontaneous vaginal delivery of twin a followed by vacuum-assisted vaginal delivery of twin B. Findings: Twin A: Viable female infant weighing 5 pounds 6 ounces Apgars 9/9 she will be named Jannet. Twin B: Viable female weighing 5 pounds 4 ounces Apgars 7/9 she will be named Emma Intact placenta with 2 gestational sacs. 3 cm posterior cervical laceration, degree perineal laceration and hemostatic superficial left labial apex laceration all repaired repaired at the time of delivery. Procedure Description: Patient was transferred to the operating room for second stage of labor. heart rate tracing of both twins was reassuring. With excellent maternal expulsive efforts Vertex twin A was delivered successfully and the cord was doubly clamped and cut and the was placed on his mother's abdomen. Vertex presentation of twin B was confirmed both with ultrasound and digital exam. Intact bag of water was ruptured with the vertex at 0 station. Clear amniotic fluid was noted. External tocometer revealed breech twin B's heart rate in 90 range. Maternal expulsive efforts brought the vertex to a +2 station. bradycardia persisted and Kiwi vacuum cup was applied to the vertex and over the course of 1 contraction and 1 pull the vertex was brought to +3 station. There was 1 pop off. heart rate persisted in the 90 range and the Kiwi cup was reapplied to the vertex and over the course of 1 pull and 1 contraction the vertex was successfully delivered with anterior shoulder followed by trunk. The infant was placed on his mother's abdomen the cord was doubly clamped and cut. Cord bloods were collected and oxytocin infusion was initiated. Placenta delivered spontaneously intact with a normal configuration and 2 three-vessel cords. Inspection of the cervix revealed brisk bleeding from a posterior vertical laceration that was repaired with a running suture of 3-0 Vicryl. First-degree perineal laceration was repaired with interrupted suture of 2-0 Vicryl and a superficial laceration of the left labia was repaired with a subcuticular suture of 3-0 Vicryl after infiltration of the area with 1% lidocaine without epinephrine. The repair sites were hemostatic the fundus was 3 breaths below the umbilicus and patient and infants were transferred to center in stable condition.
[2019-09-29] MEDS: Nicotine 21 MG/24 HR PATCH TD (13:40)
[2019-09-29] MEDS: Carboprost 250 MCG/ML AMP (15:13)
[2019-09-29] MEDS: Methylergonovine 0.2 MG/ML VIAL (15:14)
--- NOTE | 2019-09-29 18:18 | NUR.NOTE ---
N 2 (Please see previous LC visit notes for additional information.) Encounter Date/Time: 09/28/2019 @ [phone] IDENTIFIERS Mother: Nicolette Mcfarlane : SITUATION Concerns: Introduction of services and breast pump access. MATERNAL OR PROVIDER CONCERNS ABM #5 indications for referral to services -Multiple births (twins, triplets, high-order pregnancies) POTENTIAL DIAGNOSTIC CODES common codes SUMMARY Bradley findings related to standard IBCLC met /c parents prior to delivery to review feeding plans and assist /c breast pump access. Mother states desire to breastfeed and requests a breast pump. IBCLC reviewed options /c DME providers and various pumps. Mother requests a Spectra S2. IBCLC emailed request to [facility] who verified Medicaid eligibility. IBCLC washed mother?s pump parts and reviewed breast pump kit care and milk storage. Mother states comfort /c infomraiton. BACKGROUND Parent and status - education/planning [facility] office -Experience: First-time -Support: Supportive and involved partner Supportive family plan -Feeding plan: (Use mother?s words) Desires to mix and formula feeding Breast changes during maybe a little larger -Occupation deferred -Pump available or plan Availability o Has pump Source o Medicaid - [facility] Bushra Duarte, RNC, IBCLC, BSN, MST [employer] [facility] and [address] [place] [address] Was Going Well and Now My Nipples Hurt: Could My Baby or I have a Yeast Infection? (ILCA) Nipple shield Tongue tie Marijuana and Your Baby
[2019-09-30] MEDS: Ibuprofen 600 MG TAB PO (05:13)
[2019-09-30] MEDS: Acetaminophen 325 MG TAB 650 MG PO (05:13)
[2019-09-30] MEDS: Prenatal Multivitamin w/CA,FE TAB 1 TAB PO (08:09)
[2019-09-30] MEDS: Omeprazole 20 MG CAPCR PO (08:09)
[2019-09-30] MEDS: Cyanocobalamin 500 MCG TAB 1000 MCG PO (08:09)
--- NOTE | 2019-09-30 09:29 | W.PM.DS.N ---
Date of service: 09/30/19 Time of Service: 09:29 DS: Diagnosis Discharge Diagnosis (1) Twin : Status: Acute (2) Smoker: Status: Acute Discharge Plan Disposition Patient Disposition: HOME Condition: Improving Discharge Details Reason For Visit: TWINS Admit Date/Time: 09/28/19 08:44 Admit Provider: Perla Renee Attending Provider: Perla Renee [facility] Course: Patient is a G2 now P1 L2 female admitted to the center at 37 weeks 5 days estimated stational age for induction of di-di-twin gestation. She had an uncomplicated labor and went on to do have a spontaneous delivery of a viable female infant named Lacy wt 5lb6oz and Emma wt 5lb4oz. He was discharged home on day #2 successfully breast-feeding her 's. Plan is to have her follow-up in approximately a week by phone regarding her mood and any breast-feeding issues. Patient plans to use progesterone only oral contraceptives. She was instructed to take Motrin 600 mg every 6 hours for discomfort. Home Meds and New Rx's Prescriptions: No Action aspirin 81 mg tablet,delayed release (DR/EC) 81 mg PO DAILY Qty: 90 RF: 3 omeprazole 20 mg capsule,delayed release(DR/EC) 20 mg PO DAILY PRNRF: 0 PrePlus 27 mg iron- 1 mg tablet 1 tab PO DAILY Qty: 30 RF: 8 cyclobenzaprine 10 mg tablet 10 mg PO TID PRN (Reason: muscle spasm) Qty: 30 RF: 0 mecobalamin (vitamin B12) 1,000 mcg tablet,disintegrating 1,000 mcg SL DAILY Qty: 90 RF: 4 Discharge Instructions Stand Alone Forms: BC Instructions, BC Post Vaginal Deliver Activity:: Activity as Tolerated Equipment/Supplies:: No Equipment Needed Diet:: As Tolerated Discharge Orders Discharge Orders: Discharge Order (Routine); Ordered 09/30/19 Ordered By: Perla Renee DS: Data Vitals/I&O Vitals and I&O: Vital Signs Pain Level 5 09/30/19 05:13 [facility] [place] Social History (Updated 09/30/19 @ 09:32 by Perla Renee MD) Smoking/Tobacco Use Status: Current every day Tobacco Type: cigarettes Quit status: quit date established Alcohol Intake: current Alcohol Intake frequency: holidays/special occasions only Drug use: Occasionally Substance use type: marijuana Household members: significant other and other Details: BF Deshawn Baron, Twins: Emma Power Number of Children: 0 current occupation: Employed Do you feel safe at home: Yes Do you feel safe in your relationship?: Yes Female Reproductive History Menstrual Age of Menarche: 14 control method: none History History 2 Para 1 Hx # Term Pregnancies 1 Multiple births 1 Hx # Pregnancies 0 Ectopic pregnancies 0 AB induced 0 Hx Number of Living Children 2 AB spontaneous 1 Past Pregnancies Del. Date GA/Weeks # Outcome Route Wgt Sex Labor Lgth Anesthesia Location Prov Complic 02/01/12 Unsuccessful Delivery Date: 02/01/12 Dorothy Vaz
== END 2019-09-30 14:45 | disposition home or self-care (01) | DRG 768 ==
PROVIDERS: Obstetrics & Gynecology; Admitting Provider Obstetrics & Gynecology Gynecology; PCP Nurse Practitioner Family; Visit Provider Obstetrics & Gynecology Gynecology
PROC: 10E0XZZ Delivery of Products of Conception, External Approach (ICD-10-PCS; CPT 59409; principal; 2019-09-28 11:15)
DX: O30.043 Twin pregnancy, dichorionic/diamniotic, third trimester (principal); Z37.2 Twins, both liveborn; O71.3 Obstetric laceration of cervix; O99.324 Drug use complicating childbirth; O70.0 First degree perineal laceration during delivery; Z3A.37 37 weeks gestation of pregnancy; O99.334 Smoking (tobacco) complicating childbirth; O99.344 Other mental disorders complicating childbirth; F17.210 Nicotine dependence, cigarettes, uncomplicated; F12.90 Cannabis use, unspecified, uncomplicated; F41.9 Anxiety disorder, unspecified; Z79.82 Long term (current) use of aspirin
CPT/HCPCS: 85027; 86850; 86900; 86901; NC; J2210